=== PATIENT | female | born 1955 | race Caucasian/White ===

== ENCOUNTER → 2018-11-08 | Outpatient (CLI) | payer MEDICARE, BC ==
--- NOTE | 2018-11-09 14:09 | MM ---
Reason for exam: screening (asymptomatic). Last mammogram was performed 2 years and 11 months ago. History: Patient is postmenopausal, history of other cancer, and is nulliparous. Physical Findings: A clinical breast exam by your physician is recommended on an annual basis and results should be correlated with mammographic findings. MG 3D Screening Mammo W/Cad Bilateral CC and MLO view(s) were taken. Prior study comparison: December 21, 2015, bilateral MG screening mammo w CAD. There are scattered fibroglandular densities. There is chronic nodularity in the right breast. Secretory calcifications greater in the right breast. No significant changes when compared with prior studies. ASSESSMENT: Benign, BI-RAD 2 RECOMMENDATION: Routine screening mammogram of both breasts in 1 year.
== END | disposition home or self-care (01) ==
LOC: RADMAMWWP 14:30
PROVIDERS: ATTEND Family Medicine
DX: Z12.31 Encounter for screening mammogram for malignant neoplasm of breast (principal)
CPT/HCPCS: 77063; 77067

== ENCOUNTER 2019-01-14 09:01 | Emergency (ER) | payer MEDICARE, BC ==
[2019-01-14 09:07] VITALS: TEMP 98.2
--- NOTE | 2019-01-14 09:20 | ED ---
General Adult HPI - General Chief complaint: Recheck/Abnormal Lab/Rx Stated complaint: ABNORMAL LAB Time Seen by Provider: 01/14/19 09:09 Source: patient, RN notes reviewed, old records reviewed Mode of arrival: ambulatory Limitations: no limitations - History of Present Illness Initial comments: 63-year-old female presents for evaluation of anemia. Patient had blood drawn 2 days prior and was noted to be anemic. She denies rectal bleeding, denies m theodore. No history of anemia. Denies symptoms. Denies chest pain or dyspnea. Denies lightheadedness. No history of peptic ulcer disease. She is not on any anticoagulation. She does take daily aspirin. - Related Data Home Medications Medication Instructions Recorded Confirmed ALPRAZolam [Xanax] 0.25 mg PO TID PRN 01/14/19 01/14/19 Atorvastatin [Lipitor] 20 mg PO HS 01/14/19 01/14/19 Empagliflozin [Jardiance] 10 mg PO DAILY 01/14/19 01/14/19 Ergocalciferol (Vitamin D2) 50,000 unit PO MO 01/14/19 01/14/19 [Vitamin D2] Ferrous Sulfate [Feosol] 325 mg PO TID 01/14/19 01/14/19 Lisinopril 40 mg PO DAILY 01/14/19 01/14/19 glyBURIDE [Diabeta] 10 mg PO AC-BID 01/14/19 01/14/19 metFORMIN HCL [Glucophage] 1,000 mg PO BID 01/14/19 01/14/19 Previous Rx's Medication Instructions Recorded Ferrous Sulfate [Feosol] 325 mg PO DAILY #30 tab 01/14/19 Allergies Allergy/AdvReac Type Severity Reaction Status Date / Time No Known Allergies Allergy Verified 01/14/19 10:13 Review of Systems ROS Statement: Those systems with pertinent positive or pertinent negative responses have been documented in the HPI. ROS Other: All systems not noted in ROS Statement are negative. Past Medical History Past Medical History: Coronary Artery Disease (CAD), Diabetes Mellitus, Hype rlipidemia, Myocardial Infarction ([place]) History of Any Multi-Drug Resistant Organisms: None Reported Past Surgical History: Heart Catheterization With Stent Past Psychological History: No Psychological Hx Reported Smoking Status: Former smoker Past Alcohol Use History: None Reported Past Drug Use History: None Reported General Exam Limitations: no limitations General appearance: alert, in no apparent distress Head exam: Present: atraumatic, normocephalic Eye exam: Present: normal appearance, PERRL ENT exam: Present: normal exam Neck exam: Present: normal inspection. Absent: tenderness, meningismus Respiratory exam: Present: normal lung sounds bilaterally. Absent: respiratory distress, wheezes Cardiovascular Exam: Present: regular rate, normal rhythm GI/Abdominal exam: Present: soft. Absent: distended, tenderness Rectal exam: Present: normal inspection, normal rectal tone. Absent: black stool, bloody stool Extremities exam: Present: normal inspection Back exam: Present: normal inspection Neurological exam: Present: alert, oriented X3 Psychiatric exam: Present: normal affect, normal mood Skin exam: Present: warm, dry, intact. Absent: cyanosis, diaphoretic Course Vital Signs 01/14/19 01/14/19 09:03 09:40 Temperature 98.2 F Pulse Rate 90 79 Respiratory 18 18 Rate Blood Pressure 171/74 118/69 O2 Sat by Pulse 99 96 Oximetry Medical Decision Making - Medical Decision Making 63-year-old female presenting with chief complaint of abnormal outpatient laboratory test. Patient was found to be anemic and sent to the emergency department. She had a hemoglobin 8.52 days ago. Patient denies any complaints, no dyspnea, no lightheadedness, no rectal bleeding or melena. Repeat hemoglobin is obtained in the emergency department, this is a 0.9 with an MCV of 71. Her Hemoccult testing is negative. She will be discharged home. Can follow with primary care physician regarding anemia. We will add iron supplementation. - Lab Data Result diagrams: 01/14/19 09:29 01/14/19 09:29 Lab Results 01/14/19 01/14/19 01/14/19 Range/Units 09:29 09:29 09:29 WBC 6.3 (3.8-10.6) k/uL RBC 4.45 (3.80-5.40) m/uL Hgb 8.9 L (11.4-16.0) gm/dL Hct 31.6 L (34.0-46.0) % MCV 71.0 L (80.0-100.0) fL MCH 19.9 L (25.0-35.0) pg MCHC 28.0 L (31.0-37.0) g/dL RDW 15.9 H (11.5-15.5) % Plt Count 337 (150-450) k/uL Neutrophils % 53 % Lymphocytes % 35 % Monocytes % 5 % Eosinophils % 3 % Basophils % 1 % Neutrophils # 3.3 (1.3-7.7) k/uL Lymphocytes # 2.2 (1.0-4.8) k/uL Monocytes # 0.3 (0-1.0) k/uL Eosinophils # 0.2 (0-0.7) k/uL Basophils # 0.1 (0-0.2) k/uL Hypochromasia Marked Poikilocytosis Slight Microcytosis Moderate Sodium 137 (137-145) mmol/L Potassium 5.3 H (3.5-5.1) mmol/L Chloride 104 (98-107) mmol/L Carbon Dioxide 21 L (22-30) mmol/L Anion Gap 12 mmol/L BUN 29 H (7-17) mg/dL Creatinine 0.72 (0.52-1.04) mg/dL Est GFR (CKD-EPI)AfAm >90 (>60 ml/min/1.73 sqM) Est GFR (CKD-EPI)NonAf 89 (>60 ml/min/1.73 sqM) Glucose 171 H (74-99) mg/dL Calcium 10.5 H (8.4-10.2) mg/dL Magnesium 1.9 (1.6-2.3) mg/dL Total Bilirubin 0.5 (0.2-1.3) mg/dL AST 32 (14-36) U/L ALT 32 (9-52) U/L Alkaline Phosphatase 75 (38-126) U/L Total Protein 7.4 (6.3-8.2) g/dL Albumin 4.7 (3.5-5.0) g/dL Stool Occult Blood Negative (Negative) Disposition Clinical Impression: Microcytic anemia Disposition: HOME SELF-CARE Condition: Good Instructions (If sedation given, give patient instructions): Iron Deficiency Anemia (ED), Anemia (ED) Prescriptions: Ferrous Sulfate [Feosol] 325 mg PO DAILY #30 tab Is patient prescribed a controlled substance at d/c from ED?: No Referrals: Libertad Willis III, MD [Primary Care Provider] - 1-2 days Time of Disposition: 10:27
[2019-01-14 09:53] LABS: Basophils # (A) 0.1 k/uL (0-0.2); Basophils % (A) 1 %; Eosinophils # (A) 0.2 k/uL (0-0.7); Eosinophils % (A) 3 %; HCT 31.6 % (34.0-46.0); HGB 8.9 gm/dL (11.4-16.0); Hypochromasia Marked; Lymphocytes # (A) 2.2 k/uL (1.0-4.8); Lymphocytes % (A) 35 %; MCH 19.9 pg (25.0-35.0); Mean Platelet Volume 7.9; Microcytosis Moderate; Monocytes # (A) 0.3 k/uL (0-1.0); Monocytes % (A) 5 %; Neutrophils # (A) 3.3 k/uL (1.3-7.7); Neutrophils % (A) 53 %; Platelet Count 337 k/uL (150-450); Poikilocytosis Slight; RBC 4.45 m/uL (3.80-5.40); RDW 15.9 % (11.5-15.5); WBC 6.3 k/uL (3.8-10.6)
[2019-01-14 10:00] LABS: ALT 32 U/L (9-52); AST 32 U/L (14-36); Albumin 4.7 g/dL (3.5-5.0); Alkaline Phosphatase 75 U/L (38-126); Anion Gap 12 mmol/L; Blood Urea Nitrogen 29 mg/dL (7-17); Calcium 10.5 mg/dL (8.4-10.2); Carbon Dioxide 21 mmol/L (22-30); Chloride 104 mmol/L (98-107); Glucose 171 mg/dL (74-99); Magnesium 1.9 mg/dL (1.6-2.3); Potassium 5.3 mmol/L (3.5-5.1); Sodium 137 mmol/L (137-145); Total Bilirubin 0.5 mg/dL (0.2-1.3); Total Protein 7.4 g/dL (6.3-8.2)
[2019-01-14 10:50] VITALS: BP 130/67; PULSE 80; RESP 16
== END 2019-01-14 10:49 | disposition home or self-care (01) ==
LOC: EC 09:01
DX: D50.9 Iron deficiency anemia, unspecified (principal); I25.10 Atherosclerotic heart disease of native coronary artery without angina pectoris; E11.9 Type 2 diabetes mellitus without complications; E78.5 Hyperlipidemia, unspecified; I25.2 Old myocardial infarction; Z87.891 Personal history of nicotine dependence; Z79.84 Long term (current) use of oral hypoglycemic drugs; Z79.899 Other long term (current) drug therapy; Z95.5 Presence of coronary angioplasty implant and graft
CPT/HCPCS: 36415; 80053; 82272; 83735; 85025; 86850; 86900; 86901; 99284

== ENCOUNTER 2020-03-15 15:38 | Emergency (ER) | payer MEDICARE, BC ==
[2020-03-15 16:06] VITALS: BP 128/79; PULSE 94; RESP 18; TEMP 99.1
[2020-03-15] MEDS ORDERED: HYDROcodone/APAP 5-325MG 1 EACH TAB PO STA (16:23)
--- NOTE | 2020-03-15 16:45 | XR ---
EXAMINATION TYPE: XR femur LT DATE OF EXAM: 03/15/2020 CLINICAL HISTORY: Left leg pain. TECHNIQUE: Two views of the left femur are obtained. COMPARISON: None FINDINGS: There is no acute fracture or dislocation seen in the left femur. Advanced degenerative ch vivienne left hip joint with marked superior joint space loss and severe acetabular spurring. Mild to mod erate tricompartment degenerative change in the left knee. Overlying soft tissues unremarkable. IMPRESSION: As above.
--- NOTE | 2020-03-15 17:24 | ED ---
General Adult HPI - General Chief complaint: Extremity Problem,Nontraumatic Stated complaint: L Leg Pain Time Seen by Provider: 03/15/20 16:09 Source: patient, RN notes reviewed Mode of arrival: ambulatory Limitations: no limitations - History of Present Illness Initial comments: 64 year old female presents to the emergency department for a chief complaint of left anterior leg pain. Patient has had left anterior thigh pain for several months now. States she does not want to go to her primary care doctor. States she thought it would go away but it does not appear to be improving so she decided to come to the emergency room. States it is causing her to limp on the left leg. Denies any pain on the posterior leg. Denies any swelling or redness . Denies fevers or chills. Denies any weakness of the left leg.Patient has no other complaints at this time including shortness of breath, chest pain, abdominal pain, nausea or vomiting, headache, or visual changes. - Related Data Home Medications Medication Instructions Recorded Confirmed ALPRAZolam [Xanax] 0.25 mg PO TID PRN 01/14/19 01/14/19 Atorvastatin [Lipitor] 20 mg PO HS 01/14/19 01/14/19 Empagliflozin [Jardiance] 10 mg PO DAILY 01/14/19 01/14/19 Ergocalciferol (Vitamin D2) 50,000 unit PO MO 01/14/19 01/14/19 [Vitamin D2] Ferrous Sulfate [Feosol] 325 mg PO TID 01/14/19 01/14/19 glyBURIDE [Diabeta] 10 mg PO AC-BID 01/14/19 01/14/19 lisinopriL 40 mg PO DAILY 01/14/19 01/14/19 metFORMIN HCL [Glucophage] 1,000 mg PO BID 01/14/19 01/14/19 Previous Rx's Medication Instructions Recorded Ferrous Sulfate [Feosol] 325 mg PO DAILY #30 tab 01/14/19 Allergies Allergy/AdvReac Type Severity Reaction Status Date / Time No Known Allergies Allergy Verified 03/15/20 16:06 Review of Systems ROS Statement: Those systems with pertinent positive or pertinent negative responses have been documented in the HPI. ROS Other: All systems not noted in ROS Statement are negative. Past Medical History Past Medical History: Coronary Artery Disease (CAD), Diabetes Mellitus, Hyperlipidemia, Myocardial Infarction ([place]) History of Any Multi-Drug Resistant Organisms: None Reported Past Surgical History: Heart Catheterization With Stent Past Psychological History: No Psychological Hx Reported Smoking Status: Never smoker Past Alcohol Use History: None Reported Past Drug Use History: None Reported General Exam Limitations: no limitations General appearance: alert, in no apparent distress Head exam: Present: atraumatic, normocephalic, normal inspection Eye exam: Present: normal appearance, PERRL, EOMI. Absent: scleral icterus, conjunctival injection, periorbital swelling ENT exam: Present: normal exam, mucous membranes moist Neck exam: Present: normal inspection, full ROM. Absent: tenderness, meningismus, lymphadenopathy Respiratory exam: Present: normal lung sounds bilaterally. Absent: respiratory distress, wheezes, rales, rhonchi, stridor Cardiovascular Exam: Present: regular rate, normal rhythm, normal heart sounds. Absent: systolic murmur, diastolic murmur, rubs, gallop, clicks Extremities exam: Present: full ROM (Full range of motion of the left lower ext remity.), tenderness (Tenderness noted to the anterior mid thigh. No ecchymosis. No tenderness to the posterior thigh behind the knee or in the calf.), normal capillary refill (Capillary refill less than 2 seconds, DP pulse 2+ in the left lower extremity.), other (Sensation intact left lower extremity, no erythema or ecchymosis.). Absent: pedal edema, joint swelling, calf tenderness Course Vital Signs 03/15/20 16:03 Temperature 99.1 F Pulse Rate 94 Respiratory 18 Rate Blood Pressure 128/79 O2 Sat by Pulse 98 Oximetry Medical Decision Making - Medical Decision Making X-ray of the left femur is negative for acute fracture or dislocation. There is advanced degenerative changes of the hip with severe acetabular spurring. Tricompartment degenerative change of the left knee. At this time patient will follow-up with orthopedics for further management. Pain is improved after [place]. Patient will return here for any worsening symptoms. Disposition Clinical Impression: Leg pain, Arthritis Disposition: HOME SELF-CARE Condition: Good Instructions (If sedation given, give patient instructions): Leg Pain (ED) Additional Instructions: Please take Motrin for pain. If pain is severe take Tylenol 3. Do not drive or operate machinery while taking Tylenol 3. Follow up with orthopedics. Return for any worsening symptoms. Is patient prescribed a controlled substance at d/c from ED?: No Referrals: Libertad Willis III, MD [Primary Care Provider] - 1-2 days Ambrocio Barahona MD [STAFF PHYSICIAN] - 1-2 days Time of Disposition: 17:23
[2020-03-15] MEDS ORDERED: ACET/COD 300 MG/30 MG STARTER PACK 6 TAB BTL PO STA (17:43)
== END 2020-03-15 17:49 | disposition home or self-care (01) ==
LOC: EC 15:38
DX: M17.12 Unilateral primary osteoarthritis, left knee (principal); M79.605 Pain in left leg; I25.10 Atherosclerotic heart disease of native coronary artery without angina pectoris; E78.5 Hyperlipidemia, unspecified; E11.9 Type 2 diabetes mellitus without complications; I25.2 Old myocardial infarction; Z79.84 Long term (current) use of oral hypoglycemic drugs; Z79.899 Other long term (current) drug therapy; Z95.5 Presence of coronary angioplasty implant and graft
CPT/HCPCS: 99283

== ENCOUNTER → 2020-07-31 | Outpatient (CLI) | payer MEDICARE, BC ==
[2020-07-31 09:42] LABS: Anisocytosis Slight; Basophils % (A) 1 %; Eosinophils # (A) 0.2 k/uL (0-0.7); Eosinophils % (A) 3 %; HCT 28.1 % (34.0-46.0); Hypochromasia Marked; Lymphocytes # (A) 1.4 k/uL (1.0-4.8); Lymphocytes % (A) 25 %; MCH 19.3 pg (25.0-35.0); MCHC 28.4 g/dL (31.0-37.0); MCV 67.9 fL (80.0-100.0); Mean Platelet Volume 7.5; Microcytosis Marked; Monocytes # (A) 0.3 k/uL (0-1.0); Monocytes % (A) 5 %; Neutrophils # (A) 3.7 k/uL (1.3-7.7); Neutrophils % (A) 64 %; Platelet Count 293 k/uL (150-450); RBC 4.14 m/uL (3.80-5.40); RDW 16.8 % (11.5-15.5); WBC 5.7 k/uL (3.8-10.6)
[2020-07-31 14:45] LABS: % Iron Saturation 1.95 (12.00-45.00); African American GFR (CKD) 76.7 (60.0-200.0); Albumin 4.4 g/dL (3.80-4.90); Albumin/Globulin Ratio 2.32 (1.60-3.17); Anion Gap 10.7 mmol/L (4.00-12.00); BUN/Creat Ratio 34.44 Ratio (12.00-20.00); Calcium 10.7 mg/dL (8.7-10.3); Carbon Dioxide 26.3 mmol/L (21.6-31.8); Globulin 1.9 g/dL (1.6-3.3); Non-African American GFR(CKD) 66.2 (60.0-200.0); Potassium 5.3 mmol/L (3.5-5.5); T4, Free (Free Thyroxine) 0.9 ng/dL (0.80-1.80); Total Bilirubin 0.3 mg/dL (0.2-1.2); Total Protein 6.3 g/dL (6.2-8.2)
[2020-07-31 17:36] LABS: Hemoglobin A1C 8.3 % (4.0-6.0)
== END | disposition home or self-care (01) ==
LOC: LABWHC1 08:14
PROVIDERS: ATTEND Internal Medicine
DX: I10 Essential (primary) hypertension (principal); E11.9 Type 2 diabetes mellitus without complications; E02 Subclinical iodine-deficiency hypothyroidism; E55.9 Vitamin D deficiency, unspecified; D50.9 Iron deficiency anemia, unspecified; R94.6 Abnormal results of thyroid function studies
CPT/HCPCS: 36415; 80053; 82306; 83036; 83540; 83550; 83970; 84439; 84443; 84481; 85025; 86376

== ENCOUNTER → 2021-05-15 | Outpatient (CLI) | payer MEDICARE, BC ==
--- NOTE | 2021-05-16 08:32 | US ---
EXAMINATION TYPE: US thyroid st tissue head/neck DATE OF EXAM: 05/15/2021 COMPARISON: NONE CLINICAL HISTORY: E05.90 Hyperthyroidism. abn labs GLAND SIZE: Right Lobe: 3.6 x 1.2 x 1.8 cm Overall Parenchyma: homogenous Left Lobe: 3.6 x 1.3 x 1.2 cm Overall Parenchyma: homogeneous Isthmus Thickness: 0.4 cm NODULES RIGHT: # of nodules measured on right: 1 1. 2.6 X 1.9 x 1.8 cm, mid , mixed cystic and solid, hypoechoic nodule, which is wider than tall, w ith smooth margins, without echogenic foci. Prior size: no prior LEFT: # of nodules measured on left: 0 ISTHMUS: # of nodules measured in the isthmus: 0 Bilateral neck scanned, no evidence of lymphadenopathy. IMPRESSION: Mildly suspicious, consider fine-needle aspiration biopsy of right lobe nodule 2017 ACR TI-RADS LEVEL: TR 3 *Highest TI-RADS level nodule reported
== END | disposition home or self-care (01) ==
LOC: RADUSWWP 16:44
PROVIDERS: ATTEND Internal Medicine
DX: E04.1 Nontoxic single thyroid nodule (principal)
CPT/HCPCS: 76536

== ENCOUNTER → 2021-05-15 | Outpatient (CLI) | payer MEDICARE, BC ==
[2021-05-15 16:14] LABS: Basophils # (A) 0.05 X 10*3/uL (0.00-0.10); Basophils % (A) 0.8 %; Eosinophils % (A) 1.6 %; HCT 40.5 % (37.2-46.3); HGB 12.5 g/dL (12.0-15.0); Lymphocytes # (A) 1.68 X 10*3/uL (0.90-5.00); Lymphocytes % (A) 27.6 %; MCH 27.1 pg (27.0-32.0); MCHC 30.9 g/dL (32.0-37.0); MCV 87.9 fL (80.0-97.0); Mean Platelet Volume 11.2 fL (9.5-12.2); Monocytes # (A) 0.43 X 10*3/uL (0.20-1.00); Monocytes % (A) 7.1 %; Neutrophils # (A) 3.81 X 10*3/uL (1.80-7.70); Neutrophils % (A) 62.6 %; Platelet Count 277 X 10*3/uL (140-440); RBC 4.61 X 10*6/uL (4.10-5.20); RDW 12.8 % (11.5-14.5); WBC 6.09 X 10*3/uL (4.50-10.00)
[2021-05-15 22:11] LABS: % Iron Saturation 8.56 (12.00-45.00); African American GFR (CKD) 76.7 (60.0-200.0); Albumin/Globulin Ratio 2.27 (1.60-3.17); Anion Gap 10.5 mmol/L (4.00-12.00); Calcium 10.8 mg/dL (8.7-10.3); Carbon Dioxide 25.5 mmol/L (21.6-31.8); Globulin 2.2 g/dL (1.6-3.3); Non-African American GFR(CKD) 66.2 (60.0-200.0); Phosphorus 3.1 mg/dL (2.4-5.1); Potassium 4.9 mmol/L (3.5-5.5); Total Bilirubin 0.4 mg/dL (0.3-1.2); Total Protein 7.2 g/dL (6.2-8.2)
[2021-05-16 00:21] LABS: Hemoglobin A1C 8.4 % (4.0-6.0)
[2021-05-16 15:11] LABS: Thyroid Stim Immun Quant <0.10 IU/L (<0.10)
== END | disposition home or self-care (01) ==
LOC: LABWHC1 08:07
PROVIDERS: ATTEND Nurse Practitioner Family
DX: E11.65 Type 2 diabetes mellitus with hyperglycemia (principal); E83.52 Hypercalcemia; E05.90 Thyrotoxicosis, unspecified without thyrotoxic crisis or storm; D50.9 Iron deficiency anemia, unspecified; R94.6 Abnormal results of thyroid function studies
CPT/HCPCS: 36415; 80053; 82306; 83036; 83519; 83540; 83550; 83970; 84100; 84439; 84443; 84445; 84481; 85025